=== PATIENT | male | born 1955 ===

== ENCOUNTER 2019-02-08 03:19 | Emergency (ER) | payer SELFPAY ==
--- NOTE | 2019-02-08 03:32 | EDM.PDOC ---
ED HPI GENERAL MEDICAL PROBLEM - General Chief Complaint: General Stated Complaint: ANXIETY Time Seen by Provider: 02/08/19 03:32 Source of Information: Reports: Patient History Limitations: Reports: No Limitations - History of Present Illness INITIAL COMMENTS - FREE TEXT/NARRATIVE: Patient is accompanied by son. He says he has never been on any medications such as Lexapro. He has had a hard time sleeping. He is also concerned about having a sinus issue. I told him that he needs to probably see a ENT doctor. He has had 2 liver transplants. I did review his medical records and he was supposed to have been on a CPAP machine but he says that he has not been able to use it. He says of the brain right strips seemed to work better. At any rate we will try the Ativan. I also gave him a prescription for a small sample. I told him that he may have to try another medication if this one does not work. He will talk to his regular doctor about other options may be less likely to be cytotoxic to his liver. I did talk to the patient for about 25 minutes talking to him about the differential diagnosis for the complaints he is having. I told him about the complexity of his situation and how to try to remedy this situation without causing him other issues. Onset: Gradual Duration: Getting Worse Severity: Moderate Improves with: Reports: None Worsens with: Reports: Medication Associated Symptoms: Reports: Loss of Appetite - Related Data Allergies Allergy/AdvReac Type Severity Reaction Status Date / Time No Known Allergies Allergy Verified 02/08/19 03:21 Home Meds: Home Meds Allopurinol [Zyloprim] 1.5 tab PO DAILY 02/08/19 [History] Amoxicillin/Potassium Clav [Augmentin 875-125 Tablet] 1 each PO BIDMEALS #20 tablet 02/08/19 [Rx] Aspirin 81 mg PO DAILY 02/08/19 [History] Atenolol 50 mg PO DAILY 02/08/19 [History] Famotidine 20 mg PO DAILY 02/08/19 [History] LORazepam [Ativan] 1 - 2 mg PO BEDTIME PRN #16 tablet 02/08/19 [Rx] Losartan [Cozaar] 25 mg PO DAILY 02/08/19 [History] Mycophenolate Mofetil [Cellcept] 500 mg PO BID 02/08/19 [History] cycloSPORINE, Modified [Neoral] 75 mg PO BID 02/08/19 [History] Past Medical History Cardiovascular History: Reports: Hypertension Musculoskeletal History: Reports: Gout - Past Surgical History GI Surgical History: Reports: Other (See Below) Other GI Surgeries/Procedures: liver transplants in 1994 & 1996 Social & Family History - Tobacco Use Smoking Status *Q: Former Smoker Used Tobacco, but Quit: Yes Month/Year Tobacco Last Used: 1992 ED ROS GENERAL - Review of Systems Review Of Systems: ROS reveals no pertinent complaints other than HPI. ED EXAM, GENERAL - Physical Exam Exam: See Below Exam Limited By: No Limitations General Appearance: Alert, Moderate Distress Throat/Mouth: Normal Inspection, Normal Lips, Normal Teeth, Normal Gums, Normal Oropharynx, Normal Voice, No Airway Compromise Head: Atraumatic, Normocephalic Neck: Normal Inspection, Supple, Non-Tender, Full Range of Motion Respiratory/Chest: No Respiratory Distress, Lungs Clear, Normal Breath Sounds, No Accessory Muscle Use, Chest Non-Tender Cardiovascular: Normal Peripheral Pulses, Regular Rate, Rhythm, No Edema, No Gallop, No JVD, No Murmur, No Rub Course - Vital Signs Last Recorded V/S: Last Vital Signs Temp 36.4 C 02/08/19 03:21 Pulse 69 02/08/19 03:21 Resp 20 02/08/19 03:21 BP 147/72 H 02/08/19 03:21 Pulse Ox 98 02/08/19 03:21 - Orders/Labs/Meds Meds: Medications Discontinued Medications Generic Name Dose Route Start Last Admin Trade Name Freq PRN Reason Stop Dose Admin Lorazepam 2 mg 02/08/19 03:58 02/08/19 04:04 Ativan IM 02/08/19 03:59 2 mg ONETIME ONE Administration Departure - Departure Time of Disposition: 04:08 Disposition: Home, Self-Care 01 Condition: Good Clinical Impression: Anxiety - Discharge Information *PRESCRIPTION DRUG MONITORING PROGRAM REVIEWED*: Not Applicable *COPY OF PRESCRIPTION DRUG MONITORING REPORT IN PATIENT VINI: Not Applicable Prescriptions: Amoxicillin/Potassium Clav [Augmentin 875-125 Tablet] 1 each PO BIDMEALS #20 tablet LORazepam [Ativan] 1 - 2 mg PO BEDTIME PRN #16 tablet PRN Reason: Insomnia Referrals: PCP,Unobtain [Ordering Only Provider] - Forms: ED Department Discharge Additional Instructions: Try the ativan as prescribed at night. Fill the prescription for the Augmentin for the sinus infection. ENT referral may be necessary in regards to a CT scan of the sinuses. Alternatively a low dose anxiety medication may be warranted. Discuss this with your primary.
[2019-02-08] MEDS ORDERED: LORazepam 2 MG/ML SDV IM ONE (03:58)
== END 2019-02-08 04:15 | disposition home or self-care (01) ==
LOC: VM.ED 03:19
DX: F41.9 Anxiety disorder, unspecified (principal); I10 Essential (primary) hypertension; Z79.899 Other long term (current) drug therapy; Z87.891 Personal history of nicotine dependence
CPT/HCPCS: 96372; 99283; J2060